=== PATIENT | male | born 1940 | race Caucasian/White ===

== ENCOUNTER 2017-08-25 10:31 | Emergency (ER) | payer OTHER ==
--- NOTE | 2017-08-25 11:06 | EDPHY ---
H & P Stated Complaint: Slipped,fell, hit back of head,no LOC, +lac; also has phlegm in throat Time Seen by Provider: 08/25/17 10:54 HPI/ROS: CHIEF COMPLAINT: Mechanical fall, headache, neck pain. Additionally complains of cough x3 days HISTORY OF PRESENT ILLNESS: The patient presents the ED with complaints of posterior headache and mild neck pain following a mechanical fall earlier today. The patient slipped and fell backwards landing on his back striking his occiput. He did not lose consciousness. He has no complaints of antecedent chest pain or palpitations. He is not anticoagulated. The patient does complain of some generalized cervical spine pain. He denies any additional traumatic complaints. The patient also reports he has had a 3 day history of a productive cough. He reports a remote history of pneumonia. He denies associated fever. REVIEW OF SYSTEMS: A comprehensive 10 point review of systems is otherwise negative aside from elements mentioned in the history of present illness. Source: Patient Exam Limitations: No limitations - Personal History Current Tetanus Diphtheria and Acellular Pertussis (TDAP): Unsure - Medical/Surgical History Hx Asthma: No Hx Chronic Respiratory Disease: No Hx Diabetes: No Hx Cardiac Disease: No Hx Renal Disease: No Hx Cirrhosis: No Hx Alcoholism: No Hx HIV/AIDS: No Hx Splenectomy or Spleen Trauma: No Other PMH: HIGH CHOLESTEROL, pneumonia twice, hernia 1980, gout - Social History Smoking Status: Never smoked - Physical Exam Exam: General Appearance: Alert, no distress Head: Occipital hematoma with abrasion noted Eyes: Pupils equal, round, reactive ENT, Mouth: No hemotympanum, no oral trauma Neck: Tenderness to palpation in the mid cervical spine, primarily in the lateral paraspinal musculature Respiratory: No chest wall tender, subcutaneous air, lungs clear bilaterally Cardiovascular: Regular rate and rhythm Abdomen: Abdomen is soft and nontender, pelvis stable Skin: No lacerations, No abrasion Back: No midline T/L/S pain Extremities: Nontender, full range of motion Neuro: GCS 15 Constitutional: Initial Vital Signs Temperature (C) 36.5 C 08/25/17 10:45 Heart Rate 62 08/25/17 10:45 Respiratory Rate 16 08/25/17 10:45 Blood Pressure 108/65 08/25/17 10:45 O2 Sat (%) 96 08/25/17 10:45 O2 Delivery Mode Room Air Allergies/Adverse Reactions: No Known Allergies Allergy (Verified 08/25/17 10:44) Home Medications: Medication Instructions Recorded Aspirin [Aspirin 81mg (*)] 81 ng PO DAILY 06/05/15 Atorvastatin Calcium [Lipitor 10 10 ng PO HS 06/05/15 mg (*)] Albuterol [Ventolin Hfa Inhaler] 2 puffs IH QID PRN #1 mdi 08/25/17 Medical Decision Making - Diagnostics Imaging Results: Imaging Impressions Cervical Spine CT 08/25/17 11:01 Impression: No acute posttraumatic abnormality identified. 2. CT Cervical Spine Without Contrast, 11:22 AM History: Trauma. Trip and fall. Neck pain. Technique: Multislice helical CT through the cervical spine without contrast from the skull base to T1. Soft tissue and bone evaluation is performed. Sagittal and coronal reconstructions are obtained and reviewed. Dose reduction techniques were utilized. Findings: Cervical alignment is anatomic, but associated with a moderately reversed cervical curvature centered at C3-C4. No fracture or dislocation is identified. The relationship between skull base and C1 is normal. The C1-C2 articulation is normally aligned, but severely osteoarthritic.. The odontoid process is intact. There is degenerative disk space narrowing between C2 and C7 , worst at C6-C7 where there is marginal sclerosis present. There are chronic endplate erosive changes diffusely, and scattered subcortical degenerative cysts. Facet joints are normally aligned and remarkably uninvolved by significant osteoarthritic change (except right C7-T1). There are scattered bilateral foraminal stenoses secondary to uncovertebral joint spurs. The cervical thoracic junction is normally aligned. Soft tissue window evaluation does not show evidence of epidural or prevertebral hematoma. Impression: 1. No acute posttraumatic abnormality identified. 2. Multilevel spondylosis. Results called and discussed with Seven Gaytan, at 08/25/2017 12:00 Final results are concordant with the initial interpretation. General information for patients regarding this examination can be found at [email or web address]. If you have questions or comments about this report, please contact me at (hospital) or [phone] (cell). Chest X-Ray 08/25/17 11:01 Impression: 1. No pneumonia 2. No posttraumatic abnormality identified. Head CT 08/25/17 11:01 Impression: No acute posttraumatic abnormality identified. 2. CT Cervical Spine Without Contrast, 11:22 AM History: Trauma. Trip and fall. Neck pain. Technique: Multislice helical CT through the cervical spine without contrast from the skull base to T1. Soft tissue and bone evaluation is performed. Sagittal and coronal reconstructions are obtained and reviewed. Dose reduction techniques were utilized. Findings: Cervical alignment is anatomic, but associated with a moderately reversed cervical curvature centered at C3-C4. No fracture or dislocation is identified. The relationship between skull base and C1 is normal. The C1-C2 articulation is normally aligned, but severely osteoarthritic.. The odontoid process is intact. There is degenerative disk space narrowing between C2 and C7 , worst at C6-C7 where there is marginal sclerosis present. There are chronic endplate erosive changes diffusely, and scattered subcortical degenerative cysts. Facet joints are normally aligned and remarkably uninvolved by significant osteoarthritic change (except right C7-T1). There are scattered bilateral foraminal stenoses secondary to uncovertebral joint spurs. The cervical thoracic junction is normally aligned. Soft tissue window evaluation does not show evidence of epidural or prevertebral hematoma. Impression: 1. No acute posttraumatic abnormality identified. 2. Multilevel spondylosis. Results called and discussed with Seven Gaytan, at 08/25/2017 12:00 Final results are concordant with the initial interpretation. General information for patients regarding this examination can be found at [email or web address]. If you have questions or comments about this report, please contact me at [phone](hospital) or [phone] (cell). ED Course/Re-evaluation: The patient presents the ED for several complaints including headache and neck pain following a fall and the 2nd is a 3 day history of productive cough. The patient was noted to have an occipital scalp abrasion and small hematoma. Given his age and complaints of headache he was taken for CT scan of the head and cervical spine which demonstrate no evidence of an acute injury. The patient's chest x-ray demonstrates no evidence of pneumonia. The patient underwent serial examinations in the ED. He remains with a GCS of 15. The patient will be discharged home with a prescription for an albuterol inhaler. He is advised to return to the ED for any worsening symptoms or other concerns. Differential Diagnosis: Differential diagnosis considered includes intracranial hemorrhage, skull fracture, cervical spine fracture, bronchitis, pneumonia Departure - Departure Disposition: Home, Routine, Self-Care Clinical Impression: Bronchitis, Scalp contusion, Cervical strain Condition: Good Instructions: Cervical Strain (ED), Acute Bronchitis (ED) Additional Instructions: 1. Take Ibuprofen or Motrin 600 mg by mouth three times a day. 2. Return to the ED for severe headache, vomiting, numbness, weakness or other concerns. 3. Please use albuterol inhaler as needed for cough. Referrals: Tutu Gamez MD [Primary Care Provider] - As per Instructions Prescriptions: Albuterol [Ventolin Hfa Inhaler] 2 puffs IH QID PRN #1 mdi PRN Reason: for shortness of breath
[2017-08-25 12:24] VITALS: BP 102/65
== END 2017-08-25 12:22 | disposition home or self-care (01) ==
DX: S16.1XXA Strain of muscle, fascia and tendon at neck level, initial encounter (principal); J40 Bronchitis, not specified as acute or chronic; S00.03XA Contusion of scalp, initial encounter; Z79.82 Long term (current) use of aspirin; W01.198A Fall on same level from slipping, tripping and stumbling with subsequent striking against other object, initial encounter

== ENCOUNTER 2018-03-15 17:29 | Inpatient (IN) | payer OTHER ==
[2018-03-15] MEDS ORDERED: NS 1,000 ML IV ONE (17:34)
--- NOTE | 2018-03-15 17:38 | EDPHY ---
H & P Time Seen by Provider: 03/15/18 17:36 HPI/ROS: HPI CHIEF COMPLAINT: Presyncope, syncope in PACU. HISTORY OF PRESENT ILLNESS: This patient is a 77-year-old male, arrives to the emergency room by EMS after he had a presyncopal episode x2 and possibly a syncopal episode in the PACU at the outpatient surgical center. The patient arrives to the emergency room hemodynamically stable no acute distress. The patient states that he had bilateral inguinal hernia repair earlier today. He is recovering in the PACU and using the bathroom urinating x2. He got lightheaded during this. No full syncopal episode. He was then in bed eating chicken noodle soup and had a unresponsive brief episode. Concerning for syncope while at rest. Past Medical History: History of bacteremia, hyperlipidemia, GERD, pneumonia Past Surgical History: Bilateral inguinal hernia repair earlier today by Dr. Acosta. Social History: Denies drugs alcohol tobacco. Family History: Noncontributory ROS REVIEW OF SYSTEMS: 10 Systems were reviewed and negative with the exception of the elements mentioned in the history of present illness. Exam Constitutional appears well nontoxic, no acute distress, triage nursing summary reviewed, vital signs reviewed, awake/alert. Eyes normal conjunctivae and sclera, EOMI, PERRLA. HENT normal inspection, atraumatic, moist mucus membranes, no epistaxis, neck supple/ no meningismus, no raccoon eyes. Respiratory clear to auscultation bilaterally, normal breath sounds, no respiratory distress, no wheezing. Cardiovascular rate normal, regular rhythm, no murmur, no edema, distal pulses normal. Gastrointestinal soft, non-tender, no rebound, no guarding, normal bowel sounds, no distension, no pulsatile mass. Genitourinary no CVA tenderness. Musculoskeletal no midline vertebral tenderness, full range of motion, no calf swelling, no tenderness of extremities, no meningismus, good pulses, neurovascularly intact. Skin pink, warm, & dry, no rash, skin atraumatic. Neurologic awake, alert and oriented x 3, AAOx3, moves all 4 extremities equally, motor intact, sensory intact, CN II-XII intact, normal cerebellar, normal vision, normal speech. Psychiatric normal mood/affect. Heme/Lymph/Immune no lymphadenopathy. Differential diagnosis includes but is not limited to: ACS, atypical chest pain , pneumothorax, pneumonia, pulmonary embolism, aortic dissection, congestive heart failure, tumor, musculoskeletal pain, esophageal pain, GERD, peptic ulcer disease, pancreatitis Medical Decision Making: Plan for this patient EKG, personnel monitor, IV establishment IV fluid bolus, check basic blood work, troponin, electrolytes. Re-evaluation: EKG interpretation by me on record in [facility] system. Impression time of EKG 175, sinus rhythm rate of 78 no signs of acute ischemia no ST elevation no ST depression. CT scan head without contrast called to me by Dr. Porter negative for acute bleed or stroke. Patient's chest x-ray: Negative for pneumonia. Free air under the diaphragm however patient inguinal surgery this afternoon. 2054 patient resting comfortably. Vital signs stable. EKG shows no evidence of acute ischemia. Chest x-ray reviewed CT scan head reviewed Labs reviewed. Plan for hospital admission due to these episodes of syncope versus presyncope, and intermittent confusion. Updated patient and family. Dr. Tovar Consulted. 2054 Source: Patient, EMS - Medical/Surgical History Hx Asthma: No Hx Chronic Respiratory Disease: No Hx Diabetes: No Hx Cardiac Disease: No Hx Renal Disease: No Hx Cirrhosis: No Hx Alcoholism: No Hx HIV/AIDS: No Hx Splenectomy or Spleen Trauma: No Other PMH: HIGH CHOLESTEROL, pneumonia twice, hernia 1979, gout - Social History Smoking Status: Never smoked Constitutional: Initial Vital Signs Temperature (C) 36.5 C 03/15/18 17:29 Heart Rate 80 03/15/18 17:29 Respiratory Rate 18 03/15/18 17:29 Blood Pressure 98/64 L 03/15/18 17:29 O2 Sat (%) 98 03/15/18 17:29 O2 Delivery Mode Room Air Allergies/Adverse Reactions: No Known Allergies Allergy (Verified 03/15/18 17:39) Home Medications: Medication Instructions Recorded Aspirin [Aspirin 81mg (*)] 81 mg PO HS 06/05/15 Atorvastatin Calcium [Lipitor 10 10 mg PO HS 06/05/15 mg (*)] Furosemide [Lasix 20 MG (*)] 40 mg PO DAILY 03/15/18 Herbals/Supplements -Info Only 1 ea PO DAILY 03/15/18 [place]-3 Fatty Acids [Fish Oil 1000 1,000 mg PO HS 03/15/18 mg (*)] Medical Decision Making - Data Points Medications Given: Sodium Chloride (Ns) 1,000 mls @ 125 mls/hr IV CONT ARIELLE Stop: 09/11/18 19:14 Last Admin: 03/16/18 13:42 Dose: 1,000 mls Discontinued Medications Sodium Chloride (Ns) 1,000 mls @ 0 mls/hr IV EDNOW ONE; Wide Open PRN Reason: Protocol Stop: 03/15/18 17:35 Last Admin: 03/15/18 17:57 Dose: 1,000 mls Departure - Departure Disposition: [facility] Inpatient Acute Clinical Impression: Confusion, Pre-syncope Condition: Fair
[2018-03-15] MEDS ORDERED: ACETAMINOPHEN 325 MG TAB PO PRN (19:03)
[2018-03-15] MEDS ORDERED: HYDROCODONE/APAP 5/325 TAB PO PRN (19:10)
[2018-03-15 20:46] LABS: PLATELET COUNT 143 10^3/uL (150-400)
[2018-03-15 20:48] LABS: INR 1.18 (0.83-1.16); PROTIME(PATIENT) 15.2 SEC (12.0-15.0)
--- NOTE | 2018-03-15 23:57 | GHP ---
DATE OF ADMISSION: 03/15/2018 CHIEF COMPLAINT: Syncopal episode after hernia repair. HISTORY OF PRESENT ILLNESS: The patient is a 77-year-old gentleman with a past medical history of hy perlipidemia, who came to the hospital today for an elective hernia repair. Postoperatively, he had recurrent episodes of loss of consciousness per his , who was present with him at the bedside. N o arrhythmias were noted on telemetry monitoring. Blood pressures were on the low end of normal. He has not had any similar symptoms from anesthesia in the past. Due to the recurrent nature of his sy mptoms, it was decided to admit him for observation overnight. PAST MEDICAL HISTORY: Hyperlipidemia, gout, history of a septic joint. PAST SURGICAL HISTORY: Hernia repair today. MEDICATIONS: Aspirin 81 mg daily, atorvastatin 10 mg nightly, Lasix 40 mg daily. ALLERGIES: No known drug allergies. FAMILY HISTORY: Mother from breast cancer at the age of 64. Dad from coronary artery disease at the age of 54. SOCIAL HISTORY: The patient is a nonsmoker. He is currently . His is his POA. REVIEW OF SYSTEMS: CONSTITUTIONAL: No complaints of any fevers or chills. ENT: No recent upper re spiratory illnesses. CARDIOVASCULAR: No complaints of any chest pains or palpitations. RESPIRATORY : No complaints of shortness of breath. GI: No nausea, vomiting, diarrhea, or constipation. No fo andrzej abdominal pain, and pain seems well controlled from his surgery today. : No Mariano catheter in place. NEUROLOGIC: No complaints of any headaches or focal weakness. HEMATOLOGIC: No history of any deep vein thrombosis or pulmonary embolism. PSYCHIATRIC: No history of anxiety or depression. ENDOCRINE: No polyuria or heat intolerance. SKIN: No new rashes. MUSCULOSKELETAL: No focal joint pains. PHYSICAL EXAM: VITAL SIGNS: Temperature 36.5, blood pressure 98/64, heart rate 80, respirations 18, satting 98% on room air. GENERAL: The patient appeared comfortable. He was interactive and orient ed, in no acute distress. HEENT: Extraocular movements appeared intact. Pupils equal. No scleral icterus. NECK: Supple. No adenopathy appreciated. CHEST: Clear to auscultation with normal respi ratory effort. HEART: Regular rate and rhythm. No murmurs are noted. ABDOMEN: Soft, nontender, n ondistended. : No Mariano catheter in place. EXTREMITIES: No significant pitting edema. NEUROLOG IC: His cranial nerves 2-12 appear intact with 5/5 strength in extremities. LABS: White blood cell count 10, hemoglobin 10, platelets 143. INR is 1.18. Sodium 132, potassium 4.8, chloride 103, bicarb 24, BUN 21, creatinine 1.0, glucose 207. Troponin 0.01. BNP 163. IMAGING: CT scan of the head: No acute findings. ASSESSMENT AND PLAN: 1. Recurrent syncope, reported by patient's at the bedside. CT scanning of the head negative, and no concerning arrhythmias noted on telemetry monitoring. Possibly a reaction from anesthesia tod ay, but at the present time of my evaluation, patient seemed to do reasonably well. I recommend admi ssion overnight for observation to monitor for any neurologic changes. Otherwise, we will continue w ith his current home medication regimen. 2. Deep venous thrombosis prophylaxis. No heparin or Lovenox for now, as just had surgery today. DISPOSITION: Admit under observation. /[id number]/MODL
[2018-03-16] MEDS: NS 1,000 ML IV SCH ×2 (05:30→13:42)
[2018-03-16 05:55] LABS: PLATELET COUNT 129 10^3/uL (150-400)
--- NOTE | 2018-03-16 09:52 | SOAPPROG ---
SOAP Progress Note Assessment/Plan: Assessment:better night. one further syncopal episode last shawanda. sitting up, eating breakfast without symptoms at present. avss (BP 100's). comfortable. speech normal. skin color normal. abd soft, nontender. postop syncope - improved. hopefully all post anesthesia effect. workup unremarkable. PT to see today. apprec hospitalist assistance. possible dc today. will f/u with dr. montano as outpatient. will see back sunday for postop visit. Plan: 03/16/18 09:49 Objective: Vital Signs Temp Pulse Resp BP Pulse Ox 36.9 C 96 16 87/60 L 96 03/16/18 07:30 03/16/18 09:17 03/16/18 07:30 03/16/18 09:17 03/16/18 07:30 Laboratory Results 03/16/18 04:38 03/16/18 04:38 03/15/18 03/16/18 03/17/18 05:59 05:59 05:59 Intake Total 1050 Output Total 50 Balance 1000 PT 15.2 SEC (12.0-15.0) H 03/15/18 20:20 INR 1.18 (0.83-1.16) H 03/15/18 20:20 ICD10 Worksheet Patient Problems: Problems Problem Status Onset Confusion Acute Pre-syncope Acute Enterococcal bacteremia Acute Septic arthritis of knee, right Acute
--- NOTE | 2018-03-16 13:59 | ASMTCMCOM ---
CM Note CM Note Notes: CM reviewed chart. Pt lives independently with Ada, and was admitted through ED after syncopal episodes in outpatient recovery following a ventral hernia repair. Pt has minimal past medical history including HLD, gout and septic arthritis. PT is recommending home care and / supervision. OT has not yet evaluated. CM to follow. D/C Plan: TBD Date Signed: 03/16/2018 01:58 PM Electronically Signed By:Rocío Sofia
--- NOTE | 2018-03-16 17:23 | HOSPPROG ---
Hospitalist Progress Note Assessment/Plan: Subjective Follow-up on possible syncopal episodes. This morning patient is a new feeling better. He was observed walking with physical therapy. Blood pressures have been on the low normal range with systolics in the upper 80s at times but they seem to be improving through the morning with ongoing IV fluids. Her Objective Vital signs as detailed below Skin exam General-awake alert conversant no acute distress Heart-regular rate and rhythm no murmurs Lungs-Clear to auscultation with normal respiratory effort Abdomen-soft nontender nondistended normal bowel sounds -no Mariano catheter in place Extremities-no significant pitting edema or calf pain with palpation Skin-no concerning skin rashes noted Labs as detailed below. Assessment and plan Syncope-I have not personally observed any is syncopal episodes but these are suspected. They do not seem to be persisting into today. Possibly related to low blood pressures I recommend that we continue with IV fluids. No murmurs noted on cardiac exam so will defer echo at this time. Continue cardiac monitoring to see if any arrhythmias developed. I think if patient feels stable on his feet today or tomorrow he can likely be discharged home. Hernia-patient is status post hernia repair. Case was discussed with Dr. Acosta today. DVT prophylaxis-heparin. Disposition-discharge either later this evening or tomorrow depending on patient 's stability and ambulation. Objective: Vital Signs Temp Pulse Resp BP Pulse Ox 36.8 C 81 12 102/54 L 97 03/16/18 12:00 03/16/18 12:00 03/16/18 12:00 03/16/18 12:00 03/16/18 12:00 Laboratory Results 03/16/18 04:38 03/16/18 04:38 03/15/18 03/16/18 03/17/18 05:59 05:59 05:59 Intake Total 1050 350 Output Total 50 350 Balance 1000 0 PT 15.2 SEC (12.0-15.0) H 03/15/18 20:20 INR 1.18 (0.83-1.16) H 03/15/18 20:20 ICD10 Worksheet Patient Problems: Problems Problem Status Onset Confusion Acute Pre-syncope Acute Enterococcal bacteremia Acute Septic arthritis of knee, right Acute
[2018-03-16] MEDS: ATORVASTATIN CALCIUM 10 MG TAB PO SCH (21:22)
[2018-03-16] MEDS: HEPARIN 5,000 UNIT/0.5 ML INJ SC SCH (21:23)
[2018-03-17] MEDS: HEPARIN 5,000 UNIT/0.5 ML INJ SC SCH ×2 (05:35→15:50)
--- NOTE | 2018-03-17 06:29 | PDMN ---
Medical Necessity Medical necessity: Pt meets INPT criteria per MD as of 03/16/18 and [facility] [id number] Syncope (LOS >2 MN for ongoing eval/mgmt of syncopal episodes with hypotension, requiring IV fluids; s/p hernia repair).
--- NOTE | 2018-03-17 07:00 | SOAPPROG ---
SOAP Progress Note Assessment/Plan: Assessment:good night. no pain. no further lightheadedness. wants to go home today. avss (BP 100-120). comfortable. abd soft, nontender, nondist. no ecchymosis. Hb 8.7. postop syncope - likely anesthetic effect. anemia dilutional - no wound site swelling or ecchymosis. safe for discharge today. outpatient f/u Sunday (will need to call to arrange time). should f/u with forensic identification specialist (Hina) as well. Plan: 03/16/18 09:49 03/17/18 06:59 03/17/18 07:00 Objective: Vital Signs Temp Pulse Resp BP Pulse Ox 37.2 C 67 16 99/47 L 93 03/17/18 03:18 03/17/18 03:18 03/17/18 03:18 03/17/18 03:18 03/17/18 03:18 03/16/18 03/17/18 03/18/18 05:59 05:59 05:59 Intake Total 1250 Balance 1250 PT 15.2 SEC (12.0-15.0) H 03/15/18 20:20 INR 1.18 (0.83-1.16) H 03/15/18 20:20 ICD10 Worksheet Patient Problems: Problems Problem Status Onset Confusion Acute Pre-syncope Acute Enterococcal bacteremia Acute Septic arthritis of knee, right Acute
[2018-03-17] MEDS ORDERED: methylPREDNISolone SOD SUCC 125 MG in D5W 50 ML IV ONE (09:40)
[2018-03-17] MEDS ORDERED: methylPREDNISolone SOD SUCC 125 MG/2 ML VIAL IVP ONE (10:00)
--- NOTE | 2018-03-17 11:11 | GCON ---
HISTORY OF PRESENT ILLNESS: The patient is a 77-year-old man well known to me from outpatient visits for cardiac concerns. He was recently cleared by me to undergo inguinal hernia repair under the car e of Dr. Acosta. Unfortunately, his procedure was complicated by postoperative presyncope and near sync ope. The patient has been feeling relatively well. He did travel to the [facility] for work in the last couple of days prior to his operation, but felt well, has not had fever, chills, or cough. He h as not noted increase or unilateral swelling in his legs after his trip. He presented for surgery and felt well. Following his operation, he experienced the onset of relativ lula severe dizziness while getting up to pee following the operation and actually listed to the side striking his shoulder against the wall. He did not fall. He was helped back to the bed and then had a loss of consciousness where he felt as if he was going to another world in his own words. He felt like he was dying and was noted to be unresponsive by his . The medical personnel were called, and over the course of the next 15 minutes, he had a second episode that was relatively severe accord ing to his , but less dramatic from the patient's standpoint. He also had 3 episodes of back-to- back loss of consciousness while seated in a semi-recumbent position in the bed according to his where his eyes became as if they were unable to see and he was unresponsive to her touch or to her a sking him to respond. Ultimately, he was taken by ambulance to the emergency department for further evaluation and apparent ly had approximately 6 hours of an emergency department stay where it was very difficult for them to obtain blood from his veins, including with a stick to his external jugular. Ultimately, blood work was obtained in the evening and his sodium was noted to be 132 with a potassium of 4.8. He is glucos e was 207, calcium 7.9. The patient also had anemia preoperatively with a white count of 10.62, H and H of 10.6 and 31.9 with a low RBC count at 3.32. The MCH was 31.9 and MCHC was 33.2 with a platelet count of 143. The lorelei ent did receive saline in the emergency department to try to improve his blood pressure, which was no aditya to be relatively low. There was no apparent record of a telemetry abnormality, such as long paus es or significant tachy or joe dysrhythmia. The patient was ultimately admitted under the care of Dr. Taqueria Tovar as a hospitalist to follow him. The patient has since felt better, but was still a bit wobbly late Sunday evening. He has not had a recurrence of this zoning out spell where he loose s consciousness and is unable to be verbally responsive. His evaluation in the emergency department, included an EKG, which revealed a short p.r.n. interval w ithout evidence of significant ischemic change. Chest x-ray was negative, other than free air into t he abdomen, which would be expected in a patient in a postoperative state. He was consistently hypot ensive through the evening of Sunday night with an inappropriately low heart rate in the 60s and low 70s for a patient with blood pressures in the 90s range. His blood pressures had been recorded to be as low as 87/60, and then again last night, he had a blood pressure of 99/47 with a mean arterial pr essure of 64, and a heart rate of 67 at that time with a normal oxygen level. PHYSICAL EXAMINATION: GENERAL: At the time of my evaluation, the patient appears pale, but is awake , alert, and oriented x3. He is cooperative to the examination. He is able to stand without evidenc e of hypotension or decrease or increase in his heart rate. NECK: Reveals no JVD. He does have a c arotid bruit on the left side. HEART: Reveals a normal S1 and S2 without S3 or S4. He does not hav e a rub or gallop sound. LUNGS: Clear to auscultation bilaterally without wheezes, rales or rhonchi . ABDOMEN: Reveals positive bowel sounds. It is nondistended and nontender. There is no rebound o r guarding. EXTREMITIES: Reveal normal pulses distally with 1 to 2+ edema, which is known to be a c hronic problem for him. NEUROLOGIC: He appears to be intact and is alert and oriented x3 without fo andrzej signs. His tongue protrudes to the midline. He is able to have a symmetrical smile. His hand s trength is equal bilaterally. DIAGNOSTIC DATA: On telemetry monitoring, the patient has sinus rhythm, again with a short CT interv al and occasional wide-complex beats, most consistent with PVCs. These are located relatively far aw ay from the T-wave and do not appear to be serious. He is known to have benign PVCs in the past. His laboratory studies again reveal a dilutional anemia with a hemoglobin of 8.5 and hematocrit of 24 .8 post-delivery of saline over the last 36 hours. His white count remains elevated at 9.59 with a p latelet count of 129, and a left shift with a neutrophil count of 81.9, most consistent with demargin ation as opposed to an infection. His PT/INR is 15.2 and 1.18 with an APTT of 28.7. His chemistries reveal a sodium this morning of 134, potassium 4.5, chloride 106, qnifx-oy-wrzv chloride is 23, BUN and creatinine are 24 and 5 with a GFR of greater than 60. His glucose is 161 is a nonfasting sample , and the calcium was 7.8, which is a bit on the low side. Urinalysis reveals specific gravity 1.029 with a pH of 5, and elevated urobilinogen, which appeared to be elevated in May of 2015, as well. The urine WBC is 10 to 15 with trace epithelial cells and hyaline casts. Urine mucus was 4+ and nneka vated. The urine glucose was negative. The urine appeared cheo and moderately turbid. IMPRESSION/PLAN: The patient had multiple episodes of presyncope, some while in reclining or semi-re cumbent position where he was noted to become unresponsive without obvious changes on the telemetry w ith either sinus arrest or pauses, extreme tachy or joe dysrhythmia. These would be most consisten t with low perfusion pressures to the brain. He had multiple episodes in the immediate postoperative period and has remained with a relatively low blood pressure. I think the reason for this may be multifactorial and may be in part related to inadequate adrenal re sponse to the stress of surgery given the low sodium and high potassium on serial measurements. He i s also anemic going into the operation and has delusional anemia following administration of saline. 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 I think it is also reasonable for us to check an echocar diogram today. I would like for him to remain on strict telemetry overnight so that if he has pauses or significant sinus arrest or bradycardia or significant tachy dysrhythmia that could be noted. I would like to empirically treat him with bolus dose steroids to see if that helps with sodium reten tion and improves his electrolyte problems. I would like to keep him n.p.o. after midnight in the ev ent that he would have a significant bradycardia episode or sinus arrest with pauses that was clearly related to another event, then he may be considered for a pacemaker because of symptomatic bradycard ia and asystole. There was 1 period on the telemetry monitoring from last evening, where it appears that there was not electrical discharges coming from the heart for a period of approximately 8 second s, but this could have been related to artifact since he has not been on a strict telemetry protocol at the present time. I do not think the patient is likely to have had a pulmonary embolus given that he did not have sympt oms prior to surgery and I do not think a D-dimer would be helpful at the present time since he has j ust underwent an operation. He certainly has none of the other EKG features of a pulmonary embolus. The echocardiogram will be helpful in that regard because if he has had elevation in his pulmonary p ressures that acute, we should see increases in his pulmonary pressure or evidence of right heart str ain if he is had hemodynamic dynamically significant pulmonary embolus, which again I do not think is likely. If his blood pressure, sodium, potassium respond to exogenous steroids, then I think we will arrive a t a partial reason for this problem. I do think he should have a workup for his anemia, which has been intermittent and relatively chronic dating back into 2016. He has not had a colonoscopy in the last 5 to 8 years and that may be reason able to delve into as an outpatient. We are certainly going to track his hemoglobin and make sure th at is stable prior to his discharge. /[id number]/MODL
--- NOTE | 2018-03-17 14:05 | ECHO ---
[email or web address] [address] [address] Main: [phone] Fax: Transthoracic Echocardiogram Name: MELY RODÍRGUEZ MR#: [id number] Study Date: 03/17/2018 Study Time: 11:29 AM Date of : 1940 Age: 77 year(s) Height: 182.9 cm (72 in.) Weight: 91.17 kg (201 lb.) BSA: 2.13 m2 Gender: Male Examination: Echo Indication: Cardiac: syncope Image Quality: Adequate Contrast: Requested by: Taqueria Tovar BP: 104 mmHg/51 mmHg Heart Rate: Rhythm: Indication: Cardiac: syncope Procedure Staff Land Leveler: Noemi Carlton RDCS Reading Physician: David Sharma MD Requesting Provider: Conclusions: Normal size left ventricle. Mild concentric LV hypertrophy. Normal global systolic LV function. EF is 56 %. No regional wall motion abnormality. Mildly dilated right ventricle. Normal RV function. The left atrium is mildly dilated. The right atrium is moderately dilated. Mild tricuspid regurgitation is present. Right ventricular systolic pressure measures 54mmHg. The pulmonary artery pressure is moderately increased. The IVC is mildly dilated. No pericardial effusion. Measurements: Chambers Valvular Assessment AV/MV Valvular Assessment TV/PV Normal Normal Normal Name Value Range Name Value Range Name Value Range Ao Divya (2D): 3.0 cm (1.4 cm-2.6 AV Vmax: 1.51 m/s (1 m/s-1.7 TR Vmax: 3.30 mm/s ( - ) cm) m/s) TR PGmax: 44 mmHg ( - ) IVSd (2D): 1.2 cm (0.6 cm-1.1 AV maxP mmHg ( - ) syst. PAP: 54 mmHg ( - ) cm) AV meanP mmHg ( - ) PV Vmax: 0.98 m/s (0.6 m/s-0.9 LVDd (2D): 4.8 cm (4.2 cm-5.9 VISHAL (VTI): 2.2 cm ( - ) m/s) cm) MV E Vmax: 0.64 m/s ( - ) PV PGmax: 4 mmHg ( - ) LVDs (2D): 3.3 cm (2.1 cm-4 MV A Vmax: 0.56 m/s ( - ) cm) MV E/A: 1.14 ( - ) LVPWd (2D): 1.1 cm (0.6 cm-1 cm) MV PHT: 0.073 s ( - ) LVOTd 2.1 cm 2.1 cm mm MVA (PHT): 3.0 s ( - ) Patient: MELY RODRÍGUEZ Study Date: 03/17/2018 Page 1 of 2 11:29 AM LVEF (BP): 56 % (>=55 %) Continued Measurements: Chambers Valvular Assessment AV/MV Valvular Assessment TV/PV Name Value Name Value Name Value LADs: 4.0 cm MV DecTime: 225 m/s CVP (est.): 10 mmHg LADs Lon.7 cm MV E' Septal: 0.11 m/s LA Area: 26.2 cm2 MV E/E' Septal: 5.80 LA Volume: 79 ml MV E/E' Lateral: 5.30 LA Volume Index: 37.1 ml/m2 RA Area: 28.4 cm2 Additional Vessels Name Value Ao Ascendin.1 cm Inferior Vena Cava: 2.4 cm Findings: Left Ventricle: Normal size left ventricle. Mild concentric LV hypertrophy. Normal global systolic LV function. EF is 56 %. No regional wall motion abnormality. Normal diastolic LV function. Right Ventricle: Mildly dilated right ventricle. Normal RV function. Left Atrium: The left atrium is mildly dilated. Right Atrium: The right atrium is moderately dilated. Mitral Valve: The mitral valve is normal in appearance and function. Mild mitral valve regurgitation is present. No mitral stenosis is present. Aortic Valve: The aortic valve is tri-leaflet. Aortic sclerosis is present. Mild aortic valve regurgitation is present. No aortic valve stenosis is present. Tricuspid Valve: The tricuspid valve is normal in appearance and function. Mild tricuspid regurgitation is present. Right ventricular systolic pressure measures 54mmHg. The pulmonary artery pressure is moderately increased. Pulmonic Valve: Pulmonary valve not well visualized. Aorta: The aorta is normal. Normal size aortic root measuring 3.0 cm. Normal size ascending aorta measuring 3.1 cm. IVC: The IVC is mildly dilated. Pericardium: No pericardial effusion. No pleural effusion. (No Signature Object) Patient: MELY RODRÍGUEZ Study Date: 03/17/2018 Page 2 of 2 11:29 AM [id number]
--- NOTE | 2018-03-17 16:14 | ASMTCMCOM ---
CM Note CM Note Notes: CM discussed case with PRITESH Sykes. Patient to begin steroid treatment, Cardio evaluation tomorrow to determine next steps. CM to follow. Date Signed: 03/17/2018 04:13 PM Electronically Signed By:Elizabeth Clancy
[2018-03-17] MEDS: methylPREDNISolone SOD SUCC 40 MG/ML VIAL IVP SCH (17:08)
--- NOTE | 2018-03-17 17:17 | HOSPPROG ---
Hospitalist Progress Note Assessment/Plan: Subjective Follow-up on possible syncopal episodes. Blood pressure remain low normal. Case reviewed with Dr. Santamaria and concern for possible adrenal insufficiency and we discussed a trial of steroids. Objective Vital signs as detailed below Skin exam General-awake alert conversant no acute distress Heart-regular rate and rhythm no murmurs Lungs-Clear to auscultation with normal respiratory effort Abdomen-soft nontender nondistended normal bowel sounds -no Mariano catheter in place Extremities-no significant pitting edema or calf pain with palpation Skin-no concerning skin rashes noted Labs as detailed below. Assessment and plan Syncope-with persistently low blood pressures despite IVF's. Case reviewed with Dr. Santamaria and will further evaluate with echocardiogram and trial steroids over next 24 hours. Patient may need further outpatient work up. No prior prolonged exposure to steroids. Hernia-patient is status post hernia repair. DVT prophylaxis-heparin. Disposition-likely will be able for discharge tomorrow. Objective: Vital Signs Temp Pulse Resp BP Pulse Ox 36.8 C 88 16 142/73 H 97 03/17/18 15:38 03/17/18 15:38 03/17/18 15:38 03/17/18 15:38 03/17/18 15:38 Laboratory Results 03/17/18 11:36 03/17/18 11:36 03/16/18 03/17/18 03/18/18 05:59 05:59 05:59 Intake Total 1250 Balance 1250 PT 15.2 SEC (12.0-15.0) H 03/15/18 20:20 INR 1.18 (0.83-1.16) H 03/15/18 20:20 ICD10 Worksheet Patient Problems: Problems Problem Status Onset Confusion Acute Pre-syncope Acute Enterococcal bacteremia Acute Septic arthritis of knee, right Acute
[2018-03-17] MEDS: ATORVASTATIN CALCIUM 10 MG TAB PO SCH (21:58)
[2018-03-18] MEDS: methylPREDNISolone SOD SUCC 40 MG/ML VIAL IVP SCH ×3 (01:23→15:50)
--- NOTE | 2018-03-18 06:28 | CPEKG ---
Test Reason : OPEN Blood Pressure : / mmHG Vent. Rate : 078 BPM Atrial Rate : 078 BPM P-R Int : 103 ms QRS Dur : 091 ms QT Int : 376 ms P-R-T Axes : -20 041 021 degrees QTc Int : 429 ms Sinus rhythm Short MN interval Low voltage, precordial leads Confirmed by Eliezer Estrella ([id number]) on 03/18/2018 6:27:32 AM Referred By: Confirmed By:Eliezer Estrella
--- NOTE | 2018-03-18 08:12 | SOAPPROG ---
SOAP Progress Note Assessment/Plan: Assessment:no complaints. cards and hospitalist notes appreciated. no further drop attacks. workup neg to date. avss. up in chair, comfortable. heart regular. lungs clear. abd soft nondistended, nontender. ext without edema. Hb 7.9, PLT 97. patient anticipating discharge today. will repeat CBC (no clinical evidence of surgical site bleeding - suspect prob dilutional, unclear thrombocytopenia etiology - further plans TBD here pending results). will plan to see back Sunday. good night. no pain. no further lightheadedness. wants to go home today. avss (BP 100-120). comfortable. abd soft, nontender, nondist. no ecchymosis. Hb 8.7. postop syncope - likely anesthetic effect. anemia dilutional - no wound site swelling or ecchymosis. safe for discharge today. outpatient f/u Sunday ( will need to call to arrange time). should f/u with maintenance controller (Hina) as well. Plan: 03/16/18 09:49 03/17/18 06:59 03/17/18 07:00 03/18/18 08:11 03/18/18 08:12 Objective: Vital Signs Temp Pulse Resp BP Pulse Ox 36.5 C 59 L 16 113/58 L 96 03/18/18 07:36 03/18/18 07:36 03/18/18 07:36 03/18/18 07:36 03/18/18 07:36 Laboratory Results 03/17/18 11:36 03/17/18 11:36 03/17/18 03/18/18 03/19/18 05:59 05:59 05:59 Intake Total 1250 Balance 1250 PT 15.2 SEC (12.0-15.0) H 03/15/18 20:20 INR 1.18 (0.83-1.16) H 03/15/18 20:20 ICD10 Worksheet Patient Problems: Problems Problem Status Onset Confusion Acute Pre-syncope Acute Enterococcal bacteremia Acute Septic arthritis of knee, right Acute
--- NOTE | 2018-03-18 09:43 | PDCARPN ---
Cardiology Progress Note Chief Complaint: postoperative hypotension Assessment/Plan: Assessment:Post operative hypotension seems better with steroids and the sodium is better after steroids. Hemoglobin is still drifting down and appears to be related to chronic iron deficiency and therefore likely related to prior blood loss but may be contributing to his hypotension. The telemetry reveals pauses consistent with blocked PACs and brief 4 beat run of slow VT that is unlikely to explain his symptoms. His echocardiogram reveals elevated right heart pressures (58mmHg), and I believe he should be ruled out for PE with CT as a D dimer is unlikely to be helpful in post operative state. I have discussed with Pete david who agrees. We may scan his abdomen and pelvis as well to see if he has a mass in his colon that would be source of chronic blood loss. This becomes even more important if he needs anticoagulation for a pulmonary embolus. I think his discharge needs to be held until this work up is completed OK to eat for now. There is no evidence that he will need a pacemaker. Plan: As above. 03/18/18 09:43 Reviewed/Discussed With: family, hospitalist, multidisciplinary team Time Spent with Patient: greater than 25 minutes Time Spent with Patient: Greater than 25 minutes spent on this patients care, greater than 50% of time spent counseling, educating, and coordinating care regarding the above mentioned plan. Objective: Vital Signs (8 Hrs) Temp Pulse Resp BP Pulse Ox 03/18/18 07:36 36.5 C 59 L 16 113/58 L 96 03/18/18 03:12 36.9 C 72 16 96/48 L 95 Intake/Output (24 Hrs) 03/17/18 03/18/18 03/19/18 05:59 05:59 05:59 Intake Total 1250 Balance 1250 Intake: IV Intake (ml) 1250 Other: Intake Quantity Yes Yes Sufficient Number of Voids Toilet 5 Result Diagrams: 03/18/18 08:46 03/17/18 11:36 EKG: Normal sinus rhyhtm with short VT and no evidence of ischemia Telemetry: See note Echocardiogram: normal lv funtion with mild concentric hypertrophy and elevated right heart pressures. - Physical Exam Constitutional: WDWN, other (pale) Eyes: PERRL, EOMI, anicteric sclera Ears, Nose, Mouth, Throat: moist mucous membranes Cardiovascular: regular rate and rhythm, no murmurs, no rubs, no gallops Peripheral Pulses: 2+: carotid (R), carotid (L) (bruit) Respiratory: clear to auscultate bilat, no crackles Gastrointestinal: normoactive bowel sounds, no tenderness Skin: no rashes Musculoskeletal: no muscular tenderness Neurologic: AAOx3, CN II-XII grossly intact Psychiatric: cooperative, interactive, following commands - . Pending Discharge Within 24 Hours: No Pending Discharge Within 48 Hours: Yes ICD10 Worksheet Patient Problems: Problems Problem Status Onset Enterococcal bacteremia Acute Septic arthritis of knee, right Acute Confusion Acute Pre-syncope Acute
--- NOTE | 2018-03-18 09:52 | HOSPPROG ---
Hospitalist Progress Note Assessment/Plan: DIAGNOSES: * multiple syncopal episodes * Pulm HTN, new diagnosis unexplained * hypotension * acutely worsening anemia in the setting of iron deficiency anemia which is a new diagnosis * suspicion for possible adrenal insufficiency with hyponatremia hyperkalemia and the above * thrombocytopenia I reviewed the patient's condition and care plans in detail today with Dr. Javier Santamaria At this point with pulmonary hypertension, pulmonary embolism needs to be ruled out in his postoperative state. I agree with Dr. Santamaria on ordering a CT scan of the chest and I will review that and go over with the patient. If he does have PEs treating him will need to be done carefully and with GI evaluation as he has iron deficiency that is not yet diagnosed. If there is no PE and he is up on on his feet stable without significant orthostasis may be able to get him home which is his desire PLANS: * CT chest with PE protocol to assess for causes of PHTN and syncope * Continue fall vital signs very closely * Recheck hemoglobin later today * I have begun IV iron therapy here and he will need ongoing outpatient iron therapy upon discharge * Until GI workup is done will add proton pump inhibitor * Will need GI workup for iron deficiency but the timing of that will depend on whether he has PE are not; may need to do now if he is going to go on anticoagulation * Type and screen will be ordered and consider transfusion if any further decrease and counts or continued symptoms of orthostasis * Regarding the question of adrenal insufficiency, I think this is probably unlikely. He did not actually have a true hyponatremia I think he was volume depleted causing his sodium to be as high as it was. Will not be able to the test for that at present given the steroids he has been receiving but perhaps he should at some point have a stimulation test. Would taper his steroid as tolerated at this time SUBJECTIVE: Feels better overall No orthostatic symptoms Eating well, having bowel function Has some abdominal wall pain at the lower incisions site but no intra-abdominal or flank or back pain No pleuritic pain or shortness of breath OBJECTIVE Vitals reviewed: Still intermittently hypotensive otherwise stable without fever Nursery Supervisor, my review: Exam: alert oriented skin warm dry color ok resps not labored lungs clear BSs heart regular abd soft nondistended, bowel sounds present, only tenderness is at his incision sites where there are significant hematomas but no signs of infection or dehiscence; no flank tenderness limbs warm, no edema iv site ok Laboratory data: Hemoglobin very slightly decreased from yesterday at 7.6, essentially stable Platelets slightly improved White blood cell count is higher today notably, likely due to steroids Objective: Vital Signs Temp Pulse Resp BP Pulse Ox 36.5 C 59 L 16 113/58 L 96 03/18/18 07:36 03/18/18 07:36 03/18/18 07:36 03/18/18 07:36 03/18/18 07:36 Laboratory Results 03/18/18 08:46 03/17/18 11:36 03/17/18 03/18/18 03/19/18 06:59 06:59 06:59 Intake Total 1250 Balance 1250 PT 15.2 SEC (12.0-15.0) H 03/15/18 20:20 INR 1.18 (0.83-1.16) H 03/15/18 20:20 - Time Spent With Patient Time Spent with Patient: greater than 35 minutes Time Spent with Patient: Greater than 35 minutes spent on this patients care, greater than 50% of time spent counseling, educating, and coordinating care regarding the above mentioned plan. ICD10 Worksheet Patient Problems: Problems Problem Status Onset Confusion Acute Pre-syncope Acute Enterococcal bacteremia Acute Septic arthritis of knee, right Acute
[2018-03-18] MEDS ORDERED: IOPAMIDOL (ISOVUE 370) 100 ML BTL IV ONE (10:14)
[2018-03-18] MEDS ORDERED: SODIUM FERRIC GLUCONAT/SUCROSE 125 MG in NS 100 ML IV SCH (10:30)
[2018-03-18] MEDS ORDERED: PANTOPRAZOLE SODIUM 40 MG TAB PO SCH (10:30)
[2018-03-18 15:13] VITALS: BP 116/64
--- NOTE | 2018-03-18 15:19 | PDDCSUM ---
Discharge Summary Discharge Summary: DISCHARGE DIAGNOSES: * multiple syncopal episodes * anemia, acute postoperative but with with iron deficiency suggesting a more chronic component * hypotension * pulmonary hypertension likely due to chronic obstructive sleep apnea; prior history of cigar smoking * thrombocytopenia improving, likely due to bleeding CONSULTANTS: Dr. Omi Santamaria PROCEDURES: CT scan of chest showing no evidence of pulmonary embolism; coronary calcifications incidentally noted the with LAD disease Echocardiogram showing pulmonary hypertension HOSPITAL COURSE SUMMARY: This patient had been in for an outpatient surgical procedure for hernia repair. Postoperatively he had several episodes of syncope. He was hypotensive and was admitted to the hospital. He was in a sinus rhythm. Notably he had a fairly concentrated urine. On blood testing his hemoglobin was at 10 with a normal MCV. Overnight however after some hydration his hemoglobin came down to 8 and the following day was down further at 7.6. He did have some bruising around his incision sites but there is no evidence of intra-abdominal bleeding or other ongoing bleeding. Iron studies were done and showed his iron level to be at 18% saturation. The patient was monitored on EKG monitors and had 1 brief 4 beat run of accelerated idioventricular tachycardia. There are no other arrhythmias. Echocardiogram showed pulmonary hypertension but no other concerning abnormalities. A CT scan showed no evidence of pulmonary embolism but did show some coronary calcifications. The patient does have known obstructive sleep apnea and has been using CPAP for the past years but it is felt he likely has pulmonary hypertension as result of his sleep apnea. However he has never had any kind of pulmonary function testing. He has previously been a cigar smoker Here the patient had no further syncope spells after some hydration. Because of his anemia and iron deficiency he was given some intravenous iron and started on oral iron. He last had a colonoscopy approximately 8 years ago and has never had an EGD so he will need outpatient studies for that. Otherwise the patient has been asymptomatic and recovered well. He is up walking in the hallways eating well. It was not felt that he was having an acute cardiac cause of his syncope. It was felt likely due to combination of anemia, bleeding , dehydration, anesthesia, pain, and pulmonary hypertension. At this point he stable for discharge to home. He will need a lot of follow-up and further investigation. He is instructed to come back here in 2 days to get a blood test for repeat hemoglobin. The patient will follow up with Dr. Sands to review his coronary calcifications, his arrhythmia, his syncope, and other issues. He will be visiting with the [facility] for endoscopy assessment for his iron deficiency. He will have routine postsurgical follow- up with Dr. Acosta. PENDING TEST RESULTS: None MEDICATION CHANGES: None FOLLOW-UP PLAN: He will follow up with Dr. Javier Santamaria in 1 week Follow up with Dr. Omi Acosta per his instructions I contacted Dr. Wellington Champagne and the patient Dr. Champagne will arrange for the patient come in for endoscopic evaluation for iron deficiency in the near future Greater than 35 minutes bedside and care coordination time today
--- NOTE | 2018-03-18 16:02 | ASMTCMCOM ---
CM Note CM Note Notes: Patient to discharge home independent. CM met with patient prior to discharge, patient is eager to go. CM delivered IM, patient signed for receipt. Patient to follow up as recommended. Date Signed: 03/18/2018 04:02 PM Electronically Signed By:Elizabeth Clancy
--- NOTE | 2018-03-18 16:06 | ASDISCHSUM ---
Discharge Information Plan Status:Home with No Needs Medically Cleared to Leave:03/17/2018 Discharge Date:03/18/2018 03:44 PM CM D/C Disposition:Home, Routine, Self-Care ADT D/C Disposition:Home, Routine, Self-Care Projected Discharge Date:03/17/2018 11:00 AM Transportation at D/C:Family Discharge Delay Reason: Follow-Up Date:03/17/2018 11:00 AM Discharge Slot:2 - 12:01 pm - 18:00 pm Final Diagnosis:syncope Placement Information Referral Type:*Home Health Care Services Referral ID:[id number] Provider Name: Address 1: Phone Number: Address 2: Fax Number: City: Selection Factors: State: Patient Contact Information Contact Name:SERGEI Relationship: Address:[address] City:[place] Alternate Phone: State/Zip Code:[place] [address] Email: Financial Information Financial Class:Medicare Primary Plan Desc:MEDICARE INPATIENT Primary Plan Number:[id number] Secondary Plan Desc:[facility] Secondary Plan Number:[id number] Assessment Information [facility] CM Progress Note CM Note CM Note Notes: CM reviewed chart. Pt lives independently with Ada, and was admitted through ED after syncopal episodes in outpatient recovery following a ventral hernia repair. Pt has minimal past medical history including HLD, gout and septic arthritis. PT is recommending home care and 16/10 supervision. OT has not yet evaluated. CM to follow. D/C Plan: TBD Date Signed: 03/16/2018 01:58 PM Electronically Signed By:Rocío Sofia [facility] CM Progress Note CM Note CM Note Notes: CM discussed case with PRITESH Sykes. Patient to begin steroid treatment, Cardio evaluation tomorrow to determine next steps. CM to follow. Date Signed: 03/17/2018 04:13 PM Electronically Signed By:Elizabeth Clancy [facility] Progress Note CM Note CM Note Notes: Patient to discharge home independent. CM met with patient prior to discharge, patient is eager to go. CM delivered IM, patient signed for receipt. Patient to follow up as recommended. Date Signed: 03/18/2018 04:02 PM Electronically Signed By:Elizabeth Clancy Intervention Information
== END 2018-03-18 15:44 | disposition home or self-care (01) | DRG 312 ==
LOC: EDUNIT# → F3E 22:10 → OBSVTOIN 03-16 17:01
PROVIDERS: ADMIT Internal Medicine; ATTEND Internal Medicine
DX: R55 Syncope and collapse (principal); I95.9 Hypotension, unspecified; D62 Acute posthemorrhagic anemia; D50.9 Iron deficiency anemia, unspecified; I27.20 Pulmonary hypertension, unspecified; G47.33 Obstructive sleep apnea (adult) (pediatric); E78.5 Hyperlipidemia, unspecified; K21.9 Gastro-esophageal reflux disease without esophagitis; Z87.01 Personal history of pneumonia (recurrent)
CPT/HCPCS: 82947-PO; 84484-ER; 97110-GP; 97116-GP; 97161-GP; 97165-GO; 97530-GP; 97535-GO; G0378; G8978-GP-CH; G8978-GP-CK; G8979-GP-CI; G8980-GP-CH; G8987-GO-CI; G8988-GO-CI; G8989-GO-CI; J1644; J2916; J2920; J2930; Q9967

== ENCOUNTER 2018-04-02 06:02 | Day surgery (SDC) | payer OTHER ==
--- NOTE | 2018-04-02 06:07 | PDANEPAE ---
ANE History of Present Illness Colonoscopy and EGD ANE Past Medical History - Cardiovascular History Hx Hypertension: No Hx Arrhythmias: No Hx Chest Pain: No Hx Coronary Artery / Peripheral Vascular Disease: Yes Hx CHF / Valvular Disease: No Hx Palpitations: No Cardiovascular History Comment: PULM HTN. Recent w/u for near syncope, found to have anemia, pulmonary HTN - Pulmonary History Hx COPD: No Hx Asthma/Reactive Airway Disease: No Hx Recent Upper Respiratory Infection: No Hx Oxygen in Use at Home: No Hx Sleep Apnea: Yes Sleep Apnea Screening Result - Last Documented: Positive Pulmonary History Comment: ERIC USES C-PAP. MILD COLD 03/12 - Neurologic History Hx Cerebrovascular Accident: No Hx Seizures: No Hx Dementia: No Neurologic History Comment: near syncope w/u as above - Endocrine History Hx Diabetes: No Obesity: mild - Renal History Hx Renal Disorders: No - Liver History Hx Hepatic Disorders: No - Neurological & Psychiatric Hx Hx Neurological and Psychiatric Disorders: No - Cancer History Hx Cancer: No - GI History GERD: no Hx Gastrointestinal Disorders: No - Other Health History Other Health History: ANEMIA. INTERMITTENT GOUT - Chronic Pain History Chronic Pain: No - Surgical History Prior Surgeries: FREDO ING HERNIA 03/13/18. RT KNEE I&D 2015. FREDO CATARACT. HEMORRHOIDECTOMY ANE Review of Systems Review of Systems: - Exercise capacity METS (RN): 4 METS ANE Patient History - Allergies Allergies/Adverse Reactions: No Known Allergies Allergy (Verified 03/15/18 17:39) - Home Medications Home Medications: Aspirin [Aspirin 81mg (*)] 81 mg PO HS 06/05/15 [Last Taken 03/29/18] Atorvastatin Calcium [Lipitor 10 mg (*)] 10 mg PO HS 06/05/15 [Last Taken 1 Day Ago ~04/01/18] [place]-3 Fatty Acids [Fish Oil 1000 mg (*)] 1,000 mg PO HS 03/15/18 [Last Taken 03/29/18] - Anes Hx Anes Hx: no prior problems - Smoking Hx Smoking Status: Never smoked - Alcohol Use Alcohol Use: Other (3 drinks/week) - Family Anes Hx Family Anes Hx: none ANE Labs/Vital Signs - Vital Signs Height: 182.88 cm Weight: 86.183 kg ANE Physical Exam - Airway Neck exam: FROM Mouth exam: normal dental/mouth exam - Pulmonary Pulmonary: clear to auscultation - Cardiovascular Cardiovascular: regular rate and rhythym - ASA Status ASA Status: III ANE Anesthesia Plan Anesthesia Plan: GA with mask
[2018-04-02] MEDS ORDERED: LR 1,000 ML IV ONE (06:48)
[2018-04-02] MEDS ORDERED: PROPOFOL 200 MG/20 ML VIAL ONE ×3 (06:59→08:03)
--- NOTE | 2018-04-02 07:06 | PDHPUP ---
History & Physical Update H&P update statement: This history and physical update is based on an assessment of the patient which was completed after admission or registration (within 24 hours), but prior to the surgery/procedure. H&P update: H&P reviewed & patient examined, no change in patient's condition since H&P completed
[2018-04-02] MEDS ORDERED: NALOXONE HCL 0.4 MG/ML INJ IVP PRN (07:33)
[2018-04-02] MEDS ORDERED: ONDANSETRON 4 MG/2 ML VIAL IVP PRN (07:33)
[2018-04-02] MEDS ORDERED: fentaNYL 100 MCG/2 ML INJ IVP PRN (07:33)
[2018-04-02] MEDS ORDERED: PHENYLEPHRINE HCL 100 MCG/ML SYR ONE (08:00)
--- NOTE | 2018-04-02 09:31 | POSTANESTH ---
Post Anesthetic Evaluation Cardiovascular Status: Similar to Pre-Op Cond Respiratory Status: Similar to Pre-op Cond. Level of Consciousness/Mental Status: Can Participate in Eval Pain Control: Adequate, Prn Tx Ordered Nausea/Vomiting Control: Adequate, Prn Tx Ordered Complications Possibly Related to Anesthesia: None Noted
[2018-04-02 10:51] VITALS: BP 116/60
--- NOTE | 2018-04-04 23:23 | GIREPORT ---
[facility] Surgical Services - Endoscopy Department Patient Name: Chandler Garduno Procedure Date: 04/02/2018 7:47 AM Patient Type: Outpatient Attending MD/ ER Physician: Omi Acosta MD Procedure: Colonoscopy Indications: Iron deficiency anemia Providers: Omi Acosta Medicines: Monitored Anesthesia Care Complications: No immediate complications. Description of Procedure: After obtaining informed consent, the scope was passed under direct vis ion. Throughout the procedure, the patient's blood pressure, pulse, and oxyg en saturations were monitored continuously. The Colonoscope with irrigatio n channel was introduced through the anus and advanced to the terminal il eum. The entire colon was examined. The patient tolerated the procedure well . Findings: The perianal and digital examinations were normal. Four sessile polyps were found in the descending colon, mid descending colon and cecum. The polyps were 3 mm in size. An endoloop was maneuvered ove r the polyp stalks for the cecal and descending polyps. The hyperplastic appe aring polyp was removed with a cold biopsy forcep. Resection and retrieval we re complete. The digital rectal exam was normal. Estimated Blood Loss: Estimated blood loss was minimal. Post Op Diagnosis: - Four 3 mm polyps in the cecum and one in the mid descending. One hyperplastic appearing polyp at 90cm. Resected and retrieved. Recommendation: - Discharge patient to home. - Repeat colonoscopy date to be determined after pending pathology resu lts are reviewed for surveillance based on pathology results. - Discharge patient to home. Attending Participation: I personally performed the entire procedure. Omi Jaeger Omi Acosta MD 04/04/2018 11:23:19 PM Number of Addenda: 0 Note Initiated On: 04/02/2018 7:47 AM Total Procedure Duration Time 0 hours 42 minutes 56 seconds [email or web address]
--- NOTE | 2018-04-04 23:25 | GIREPORT ---
[facility] Surgical Services - Endoscopy Department Patient Name: Chandler Garduno Procedure Date: 04/02/2018 7:14 AM Patient Type: Outpatient Attending / ER Physician: Omi Acosta MD Procedure: Upper GI endoscopy Indications: Iron deficiency anemia Providers: Omi Acosta Medicines: Monitored Anesthesia Care Complications: No immediate complications. Estimated blood loss: Minimal. Description of Procedure: After obtaining informed consent, the endoscope was passed under direct vision. Throughout the procedure, the patient's blood pressure, pulse, and oxygen saturations were monitored continuously. The Endoscope was intro duced through the mouth, and advanced to the third part of duodenum. The uppe r GI endoscopy was accomplished with ease. The patient tolerated the procedu re well. Findings: A small hiatal hernia with a single Brett ulcer was found. The proxim al extent of the gastric folds (end of tubular esophagus) was 40 cm from t he incisors. The Z-line was 40 cm from the incisors. A few 3 mm sessile polyps with no bleeding and no stigmata of recent bleeding were found in the gastric body. The polyp was removed with a c old biopsy forceps. Resection and retrieval were complete. Estimated blood loss was minimal. Localized mild inflammation characterized by erythema was found in the second portion of the duodenum. Estimated blood loss was minimal. Estimated Blood Loss: Estimated blood loss was minimal. Post Op Diagnosis: - Small hiatal hernia with a single Brett ulcer. - A few gastric polyps. Resected and retrieved. - Duodenitis. Recommendation: - High fiber diet for the rest of the patient's life. - Post procedure medication instructions were provided to the patient. - Take prescribed proton pump inhibitor or H2 heydi (antacid) medicat ions 30 - 60 minutes before meals. Attending Participation: I personally performed the entire procedure. Omi Jaeger Omi Acosta MD 04/04/2018 11:24:34 PM Number of Addenda: 0 Note Initiated On: 04/02/2018 7:14 AM [email or web address]
== END 2018-04-02 10:52 | disposition home or self-care (01) ==
LOC: FSGY 06:02
PROVIDERS: ATTEND Surgery
PROC: 0DB98ZX Excision of Duodenum, Via Natural or Artificial Opening Endoscopic, Diagnostic (ICD-10-PCS; principal; 2018-04-02 07:30)
PROC: 0DB38ZX Excision of Lower Esophagus, Via Natural or Artificial Opening Endoscopic, Diagnostic (ICD-10-PCS; principal; 2018-04-02 07:30)
PROC: 0DBE8ZX Excision of Large Intestine, Via Natural or Artificial Opening Endoscopic, Diagnostic (ICD-10-PCS; principal; 2018-04-02 07:30)
PROC: 0DB48ZX Excision of Esophagogastric Junction, Via Natural or Artificial Opening Endoscopic, Diagnostic (ICD-10-PCS; principal; 2018-04-02 07:30)
PROC: 0DB68ZX Excision of Stomach, Via Natural or Artificial Opening Endoscopic, Diagnostic (ICD-10-PCS; principal; 2018-04-02 07:30)
PROC: 0DBH8ZX Excision of Cecum, Via Natural or Artificial Opening Endoscopic, Diagnostic (ICD-10-PCS; principal; 2018-04-02 07:30)
DX: D50.9 Iron deficiency anemia, unspecified (principal); K31.7 Polyp of stomach and duodenum; D12.0 Benign neoplasm of cecum; K25.9 Gastric ulcer, unspecified as acute or chronic, without hemorrhage or perforation; I27.20 Pulmonary hypertension, unspecified; K44.9 Diaphragmatic hernia without obstruction or gangrene; E03.9 Hypothyroidism, unspecified
CPT/HCPCS: J2370; J2704

== ENCOUNTER → 2018-04-18 | Outpatient (CLI) | payer OTHER | LOC: BHFA 14:00 | PROVIDERS: ATTEND Internal Medicine Interventional Cardiology | DX: R55 Syncope and collapse (principal) | CPT/HCPCS: 78452; 93017; A9500 ==